=== PATIENT | female | born 1990 | race Asian ===

== ENCOUNTER 2021-08-21 09:03 | Emergency (ER) | payer OTHER ==
[2021-08-21 11:14] VITALS: BP 144/73
[2021-08-21] MEDS ORDERED: ALBUTEROL 1 PUFF INH STA (11:24)
--- NOTE | 2021-08-21 11:27 | ED Physician Documentation ---
History of Present Illness - Stated complaint Stated Complaint: C+ SOA/CHEST PX - Chief complaint Chief Complaint: General - History obtained from History obtained from: Patient - History of Present Illness Timing: Today, How many weeks ago (1.5 weeks) Pain level max: 0 Pain level now: 0 - Additonal information Additional information: 31-year-old female presents to the emergency department stating she has been sick for the past 9 to 10 days. She tested positive for COVID a few days ago at the [employer]. She is vaccinated. She is active duty [employer]. She states that they told her to stay home for 5 days after her positive test but needs to return to work tonight. She states that she still is not feeling well and they told her to come here for a work note. Patient has also had abdominal pain, mainly with coughing and moving. Worse with movement, better with rest. No vomiting or diarrhea. Denies any possibility of . No fevers. Is having mostly dry cough. Review of Systems Ten Systems: 10 systems reviewed and negative Constitutional: denies: Fever, Chills Nose: reports: Rhinorrhea / runny nose, Congestion GI: denies: Vomiting, Diarrhea : denies: Now EGA Skin: denies: Rash Musculoskeletal: denies: Neck pain, Back pain Neurologic: denies: Headache PD PAST MEDICAL HISTORY - Past Medical History Past Medical History: No - Present Medications Home Medications: Ambulatory Orders Medication Instructions Recorded Confirmed Albuterol Sulf [Ventolin Hfa 1 - 2 puffs INH Q4HR PRN #1 inhaler 08/21/21 Inhaler] - Allergies Allergies/Adverse Reactions: Allergies Allergy/AdvReac Type Severity Reaction Status Date / Time No Known Drug Allergies Allergy Verified 08/21/21 11:07 PD ED PE NORMAL - Vitals Vital signs reviewed: Yes - General General: Alert and oriented X 3, No acute distress - HEENT HEENT: Moist mucous membranes - Neck Neck: Supple, no meningeal sign - Cardiac Cardiac: RRR - Respiratory Respiratory: No respiratory distress, Clear bilaterally - Abdomen Abdomen: Soft, Non tender, Non distended - Back Back: No CVA TTP, No spinal TTP - Derm Derm: Warm and dry - Extremities Extremities: No edema, No calf tenderness / cord - Neuro Neuro: Alert and oriented X 3 - Psych Psych: Normal mood, Normal affect Results - Vitals Vitals: Vital Signs - 24 hr 01/21/22 01/21/22 11:07 11:45 Temperature 36.7 C Heart Rate 72 90 Respiratory 19 20 Rate Blood Pressure 144/73 H O2 Saturation 100 Oxygen O2 Source Room air PD MEDICAL DECISION MAKING - ED course Complexity details: reviewed results, re-evaluated patient, considered diff erential, d/w patient ED course: Patient is well-appearing, nontoxic. Afebrile. No respiratory distress. Feels subjectively dyspneic. Ambulating without any difficulty. No hypoxia. No labored breathing. Does feel better after albuterol. Will prescribe this for home for her. We will have her follow-up with her doctor for further care. Patient counseled regarding signs and symptoms for which I believe and urgent re-evaluation would be necessary. Patient with good understanding of and agreement to plan and is comfortable going home at this time This document was made in part using voice recognition software. While efforts are made to proofread this document, sound alike and grammatical errors may occur. Departure - Departure Disposition: 01 Home, Self Care Clinical Impression: COVID-19 Condition: Good Instructions: ED URI Viral Follow-Up: your,doctor in 1 week [Other] Prescriptions: Albuterol Sulf [Ventolin Hfa Inhaler] 1 - 2 puffs INH Q4HR PRN #1 inhaler PRN Reason: Shortness Of Air/Wheezing Comments: Your prescription was sent to the [facility] pharmacy. Please follow-up with your doctor as needed for further care. Drink plenty of fluids and rest. Return if you worsen. Forms: Activity restrictions Discharge Date/Time: 08/21/21 12:42
== END 2021-08-21 12:42 | disposition home or self-care (01) ==
LOC: ED 09:03
DX: U07.1 COVID-19 (principal); R06.09 Other forms of dyspnea
CPT/HCPCS: 94640; 94664; 99282; 99283

== ENCOUNTER 2021-08-25 08:00 | Outpatient (CLI) | payer OTHER | END 2021-08-25 23:59 | LOC: LAB 08:00 | PROVIDERS: ATTEND Nurse Practitioner | DX: R05.9 Cough, unspecified (principal); R06.02 Shortness of breath; Z20.822 Contact with and (suspected) exposure to COVID-19 ==

== ENCOUNTER 2023-10-09 17:30 | Emergency (ER) | payer OTHER ==
[2023-10-09 17:50] VITALS: O2SAT 100
--- NOTE | 2023-10-09 18:11 | ED Physician Documentation ---
PD HPI HEADACHE - Stated complaint Stated Complaint: COLIN,DIZZY - Chief complaint Chief Complaint: Neuro - History obtained from History obtained from: Patient - Additional information Additional information: 33-year-old woman gets frequent headaches. They are usually responsive to Tylenol. She developed a gradual onset headache 2 days ago which is similar to prior headaches but has not responded to Tylenol and gotten worse. She is been nauseous with it. No fevers or neck stiffness. Has not tried anything other than Tylenol for it. She has no primary headache diagnosis. PD PAST MEDICAL HISTORY - Past Medical History Psych: Depression, Anxiety, Other - Past Surgical History Past Surgical History: No - Present Medications Home Medications: Ambulatory Orders Medication Instructions Recorded Confirmed Escitalopram [Lexapro] 10 mg PO DAILY 08/21/23 10/09/23 Melatonin/Pyridoxine HCl (B6) 10 mg PO QPM 08/21/23 10/09/23 [Melatonin Tr 10 mg Tablet] SUMAtriptan [Imitrex] 25 mg PO BID PRN #10 tablet 10/09/23 - Allergies Allergies/Adverse Reactions: Allergies Allergy/AdvReac Type Severity Reaction Status Date / Time No Known Drug Allergies Allergy Verified 10/09/23 17:41 - Social History Does the pt smoke?: No Smoking Status: Never smoker Does the pt drink ETOH?: No Does the pt have substance abuse?: No - Immunizations Immunizations are current?: Yes - POLST Patient has POLST: No PD ED PE NORMAL - Vitals Vital signs reviewed: Yes - General General: Alert and oriented X 3, No acute distress - HEENT HEENT: PERRL, EOMI - Neck Neck: Supple, no meningeal sign, No bony TTP - Neuro Neuro: Alert and oriented X 3, stage hand 2-12 intact Eye Opening: Spontaneous Motor: Obeys Commands Verbal: Oriented GCS Score: 15 Results - Vitals Vitals: Vital Signs - 24 hr 10/09/23 10/09/23 17:37 19:41 Temperature 36.8 C Heart Rate 105 H 71 Respiratory 16 16 Rate Blood Pressure 116/77 107/71 O2 Saturation 100 100 Oxygen O2 Source Room air - Rads (name of study) CT of the head was unremarkable. Relevant Findings:: Final report received, EMP independent interpretation of test PD Medical Decision Making - ED course ED course: She presents with a headache, it is the worst headache of her life but still kind of in the line quality [place] from headaches she has had in the past. There is no evidence of meningitis, noticed neck stiffness. No fever. Given this the worst headache of her life is CT of the head was done and unremarkable. After administration of Reglan and Benadryl IV she was feeling much better and the headache was almost gone. Departure - Departure Disposition: 01 Home, Self Care Clinical Impression: Migraine Qualifiers: Migraine type: unspecified Status migrainosus presence: with status migrainosus Intractability: not intractable Qualified Code(s): G43.901 - Migraine, unspecified, not intractable, with status migrainosus Condition: Good Record reviewed to determine appropriate education?: Yes Instructions: ED Headache Migraine Prescriptions: SUMAtriptan [Imitrex] 25 mg PO BID PRN #10 tablet PRN Reason: Headache Comments: The medications we gave you generally very effective for migraines and the fact that you had improvement with these would suggest that your headache today was authorization representative of a migraine. Return if you worsen, or develop new symptoms such as a fever. Follow-up with your primary care physician, next available appointment, calling tomorrow for an appointment. Forms: PCP List Discharge Date/Time: 10/09/23 19:42
[2023-10-09] MEDS: diphenhydrAMINE INJ 50 MG/ML VIAL IVP STA (18:35)
[2023-10-09] MEDS: METOCLOPRAMIDE 10 MG/2 ML VIAL IVP STA (18:35)
--- NOTE | 2023-10-09 18:41 | CT Report ---
PROCEDURE: Head WO INDICATIONS: headache TECHNIQUE: Noncontrast 4.5 mm thick angled axial sections acquired from the foramen magnum to the vertex. For r adiation dose reduction, the following was used: automated exposure control, adjustment of mA and/or kV according to patient size. COMPARISON: None. FINDINGS: Image quality: There is streak artifact seen through the skull base. CSF spaces: Basal cisterns are patent. No extra-axial fluid collections. Ventricles are normal in size and shape. Brain: No midline shift. No intracranial masses or hemorrhage. Flood-white matter interface is norm al. Skull and face: Calvarium and visualized facial bones are intact, without suspicious lesions. Sinuses: Visualized sinuses and mastoids are clear. IMPRESSION: No acute intracranial pathology. No intracranial hemorrhage is seen. To the limits of this noncontrast study, no findings of masses or mass effect can be seen. Reviewed by: Bk Plaza MD on 10/09/2023 5:40 PM XIMENA Approved by: Bk Plaza MD on 10/09/2023 5:40 PM LADONNA Station ID: [id number]
[2023-10-09] MEDS: SODIUM CHLORIDE 0.9% 1,000 ML IV STA (18:48)
[2023-10-09 19:51] VITALS: BP 107/71
== END 2023-10-09 19:42 | disposition home or self-care (01) ==
LOC: ED 17:30
DX: G43.901 Migraine, unspecified, not intractable, with status migrainosus (principal)
CPT/HCPCS: 70450; 96374; 99284; J1200; J2765